=== PATIENT | female | born 1965 | race African-American/Black ===

== ENCOUNTER 2020-01-10 18:22 | Inpatient (IN) ==
[~2020-01-10 18:22] MED LIST: ENOXAPARIN 30 MG/0.3 ML SYRINGE SUBCUT SCH
[2020-01-10] MEDS ORDERED: NITROGLYCERIN DRIP 50 MG/250 ML BOTTLE IV ONE (18:42)
[2020-01-10] MEDS ORDERED: FUROSEMIDE 100 MG/10 ML VIAL IV STA (18:42)
[2020-01-10] MEDS ORDERED: FUROSEMIDE 100 MG/10 ML VIAL ONE (18:43)
[2020-01-10] MEDS: NITROGLYCERIN DRIP 50 MG/250 ML BOTTLE IV SCH (19:11)
[2020-01-10 19:39] LABS: Basophils # 0.1 10*3/uL (0.0-0.2); Basophils % 0.9 % (0.0-0.8); Eosinophils # 0.4 10*3/uL (0.0-0.87); Eosinophils % 7.3 % (0.00-10.9); Hematocrit 35.6 VOL% (35.7-47.0); Hemoglobin 10.4 GM/DL (12.0-16.0); Immature Granulocytes % 0.3 %; Immature Granulocytes Absolute 0.02 #; Lymphocytes # 0.9 10*3/uL (1.4-4.0); Lymphocytes % 14.5 % (21.3-54.2); Mean Corpuscular HGB Conc 29.2 GM/DL (32-36); Mean Platelet Volume 9.4 FL (9.6-12.0); Monocytes % 9.2 % (1.7-12.7); Neutrophils % 67.8 % (38.7-73.9); Platelet Count 295 T/CUMM (130-400); Red Blood Count 4.45 MC/CUMM (3.8-5.5); Red Cell Distribution Width 18.2 % (9.3-17.3); White Blood Count 5.9 T/CUMM (4-12)
[2020-01-10 19:50] LABS: INR 1.1; PT Patient Result 11.3 SECS (9.8-11.9)
[2020-01-10 20:03] LABS: Albumin 2.4 G/DL (3.4-5.0); Bilirubin,Total 0.5 MG/DL (0.2-1.0); Calcium 7.8 MG/DL (8.5-10.1); Osmolality,Calculated 293.3 MOS/KG (273-304); Total Protein 7.4 G/DL (6.4-8.3)
[2020-01-10] MEDS: DEXTROSE 5% 500 ML IV SCH (20:30)
[2020-01-10] MEDS: dilTIAZem Drip 125 MG/125 ML PREMIX IV SCH (20:33)
[2020-01-10] MEDS ORDERED: DEXTROSE 5% 1,000 ML IV SCH ×2 (21:00)
[2020-01-10] MEDS ORDERED: ONDANSETRON 4 MG/2 ML VIAL IV PRN (21:49)
[2020-01-10] MEDS ORDERED: ZALEPLON 5 MG CAPSULE PO PRN (21:49)
[2020-01-10] MEDS ORDERED: LABETALOL 20 MG/4 ML SYRINGE IV PRN (21:56)
[2020-01-10] MEDS ORDERED: DILTIAZEM INJ 100 MG in SODIUM CHLORIDE 0.9% 100 ML IV SCH (22:00)
[2020-01-10] MEDS ORDERED: NITROGLYCERIN DRIP 50 MG/250 ML BOTTLE IV SCH (22:00)
[2020-01-10] MEDS ORDERED: DEXTROSE 50% 25 GM/50 ML VIAL IV PRN (22:10)
[2020-01-10] MEDS ORDERED: GLUCAGON 1 MG VIAL IM PRN (22:10)
[2020-01-10] MEDS ORDERED: MAGNESIUM SULF RIDER 2 GM in PREMIX 1 EACH IV ONE (22:30)
[2020-01-11] MEDS: dilTIAZem Drip 125 MG/125 ML PREMIX IV SCH (00:07)
[2020-01-11] MEDS ORDERED: dilTIAZem Drip 125 MG/125 ML PREMIX IV SCH (00:30)
[2020-01-11] MEDS: FUROSEMIDE 40 MG/4 ML VIAL IV SCH ×3 (01:04→18:09)
[2020-01-11] MEDS: NITROGLYCERIN DRIP 50 MG/250 ML BOTTLE IV SCH ×2 (03:25→19:26)
[2020-01-11 04:51] LABS: Basophils % 0.4 % (0.0-0.8); Eosinophils # 0.3 10*3/uL (0.0-0.87); Eosinophils % 3.7 % (0.00-10.9); Hematocrit 31.6 VOL% (35.7-47.0); Hemoglobin 9.2 GM/DL (12.0-16.0); Immature Granulocytes % 0.3 %; Immature Granulocytes Absolute 0.02 #; Lymphocytes # 0.7 10*3/uL (1.4-4.0); Lymphocytes % 9.7 % (21.3-54.2); Mean Corpuscular HGB Conc 29.1 GM/DL (32-36); Mean Corpuscular Volume 81.2 FL (87-102); Mean Platelet Volume 9.3 FL (9.6-12.0); Neutrophils % 76.9 % (38.7-73.9); Platelet Count 270 T/CUMM (130-400); Red Blood Count 3.89 MC/CUMM (3.8-5.5); White Blood Count 6.7 T/CUMM (4-12)
[2020-01-11 05:32] LABS: Albumin 2.1 G/DL (3.4-5.0); Bilirubin,Total 0.6 MG/DL (0.2-1.0); Calcium 7.7 MG/DL (8.5-10.1); Osmolality,Calculated 292.4 MOS/KG (273-304); Risk Ratio 2.74; Thyroid Stimulating Hormone 8.18 uIU/ml (0.358-3.74); Total Protein 6.6 G/DL (6.4-8.3); VLDL CHOLESTEROL 13.8 MG/DL
[2020-01-11] MEDS: LEVOTHYROXINE 50 MCG TABLET PO SCH (06:12)
[2020-01-11] MEDS: DEXTROSE 5% 500 ML IV SCH (06:23)
[2020-01-11] MEDS ORDERED: ALBUTEROL/IPRATROPIUM 3 ML NEB RESP TX PRN (07:11)
[2020-01-11] MEDS: INSULIN LISPRO 100 UNIT/ML SUBCUT SCH ×4 (07:48→20:27)
[2020-01-11] MEDS: ENOXAPARIN 30 MG/0.3 ML SYRINGE SUBCUT SCH (08:50)
[2020-01-11] MEDS: amLODIPine 10 MG TABLET PO SCH (08:51)
[2020-01-11] MEDS: ALBUMIN 25% 25 GM in PREMIX 1 EACH IV SCH ×2 (08:51→17:05)
[2020-01-11] MEDS: FAMOTIDINE 20 MG TABLET PO SCH (08:51)
[2020-01-11] MEDS ORDERED: INFLUENZA VIRUS VACCINE 0.5 ML SYRINGE IM ONE (09:00)
[2020-01-11 12:25] LABS: Amorphous Crystals,Urine Few /HPF (Few); Bacteria,Urine Occasional /HPF (Few); Bilirubin,Urine Negative (Negative); Blood, Urine Large mg/dL (Negative); Glucose,Urine (UA) 50 mg/dL (Negative); Hyaline Casts,Urine 8 /LPF (0-3); Ketones,Urine Negative (Negative); Mucus,Urine Occasional /LPF (Occasional); Nitrite,Urine Negative (Negative); Protein,Urine 100 MG/DL; RBC,Urine 138 /HPF (0-4); Squamous Epithelial Cell,Urine Occasional /HPF (0-10); Urine Appearance Slightly Hazy (Clear); Urine Color Yellow (Yellow); Urine Specific Gravity 1.009 (1.001-1.035); Urine Urobilinogen < 2.0 EU/DL (0.2-1.0); WBC,Urine 15 /HPF (0-6)
[2020-01-11] MEDS: ATORVASTATIN 20 MG TABLET PO SCH (20:26)
[2020-01-12] MEDS: ALBUMIN 25% 25 GM in PREMIX 1 EACH IV SCH (00:37)
[2020-01-12] MEDS: FUROSEMIDE 40 MG/4 ML VIAL IV SCH ×3 (02:12→17:03)
[2020-01-12 04:34] LABS: Calcium 7.8 MG/DL (8.5-10.1); Osmolality,Calculated 290.5 MOS/KG (273-304)
[2020-01-12] MEDS: LEVOTHYROXINE 50 MCG TABLET PO SCH (06:10)
[2020-01-12] MEDS: INSULIN LISPRO 100 UNIT/ML SUBCUT SCH ×4 (08:16→21:35)
[2020-01-12] MEDS: FAMOTIDINE 20 MG TABLET PO SCH (09:17)
[2020-01-12] MEDS: amLODIPine 10 MG TABLET PO SCH (09:17)
[2020-01-12] MEDS: ENOXAPARIN 30 MG/0.3 ML SYRINGE SUBCUT SCH (09:17)
[2020-01-12] MEDS: ATORVASTATIN 20 MG TABLET PO SCH (20:35)
[2020-01-13] MEDS: LEVOTHYROXINE 50 MCG TABLET PO SCH (06:13)
[2020-01-13 06:37] LABS: Calcium 7.8 MG/DL (8.5-10.1); Osmolality,Calculated 291.5 MOS/KG (273-304)
[2020-01-13] MEDS: INSULIN LISPRO 100 UNIT/ML SUBCUT SCH ×4 (08:52→20:47)
[2020-01-13] MEDS: ENOXAPARIN 30 MG/0.3 ML SYRINGE SUBCUT SCH (08:53)
[2020-01-13] MEDS: FAMOTIDINE 20 MG TABLET PO SCH (08:53)
[2020-01-13] MEDS: amLODIPine 10 MG TABLET PO SCH (08:53)
[2020-01-13] MEDS: FUROSEMIDE 40 MG/4 ML VIAL IV SCH ×2 (08:54→16:31)
[2020-01-13] MEDS: ATORVASTATIN 20 MG TABLET PO SCH (20:46)
[2020-01-14 04:23] LABS: Calcium 7.9 MG/DL (8.5-10.1)
[2020-01-14 04:24] LABS: Uric Acid 9.2 MG/DL (2.6-6.0)
[2020-01-14 05:06] LABS: ABG Base Excess -7.7 MMOL/L (-2.5-2.5); ABG HCO3 18.1 MMOL/L (20-26); ABG Oxygen Saturation 99.1 % (95-100); ABG PCO2 47.3 MM HG (35-48); ABG PH 7.228 (7.35-7.45); ABG TCO2 18.5 MMOL/L (23-27)
[2020-01-14 05:24] LABS: Basophils # 0.1 10*3/uL (0.0-0.2); Basophils % 0.6 % (0.0-0.8); Eosinophils # 0.4 10*3/uL (0.0-0.87); Eosinophils % 4.8 % (0.00-10.9); Hematocrit 33.1 VOL% (35.7-47.0); Immature Granulocytes % 0.9 %; Immature Granulocytes Absolute 0.07 #; Lymphocytes # 0.9 10*3/uL (1.4-4.0); Lymphocytes % 11.1 % (21.3-54.2); Mean Corpuscular HGB Conc 28.4 GM/DL (32-36); Mean Corpuscular Volume 81.7 FL (87-102); Monocytes % 10.7 % (1.7-12.7); Neutrophils % 71.9 % (38.7-73.9); Platelet Count 273 T/CUMM (130-400); Red Blood Count 4.05 MC/CUMM (3.8-5.5); Red Cell Distribution Width 18.3 % (9.3-17.3); White Blood Count 8.1 T/CUMM (4-12)
[2020-01-14 05:28] LABS: Hemoglobin 9.4 GM/DL (12.0-16.0)
[2020-01-14] MEDS: LEVOTHYROXINE 50 MCG TABLET PO SCH (05:42)
[2020-01-14 05:53] LABS: Hypochromasia Slight; Microcytosis 1+; Platelet Estimate Normal
[2020-01-14] MEDS: FAMOTIDINE 20 MG TABLET PO SCH (09:44)
[2020-01-14] MEDS: INSULIN LISPRO 100 UNIT/ML SUBCUT SCH ×4 (09:44→21:07)
[2020-01-14] MEDS: FUROSEMIDE 40 MG/4 ML VIAL IV SCH ×2 (09:44→17:01)
[2020-01-14] MEDS: amLODIPine 10 MG TABLET PO SCH (09:44)
[2020-01-14] MEDS: ENOXAPARIN 30 MG/0.3 ML SYRINGE SUBCUT SCH (09:44)
[2020-01-14] MEDS: ISOSORBIDE MONONITRATE 30 MG TABLET PO SCH (12:15)
[2020-01-14] MEDS: carvediloL 6.25 MG TABLET PO SCH (21:02)
[2020-01-14] MEDS: ATORVASTATIN 20 MG TABLET PO SCH (21:02)
[2020-01-14] MEDS: SODIUM BICARBONATE 650 MG TABLET PO SCH (21:02)
[2020-01-15 03:23] LABS: Bacteria,Urine Occasional /HPF (Few); Bilirubin,Urine Negative (Negative); Blood, Urine Moderate mg/dL (Negative); Glucose,Urine (UA) 50 mg/dL (Negative); Hyaline Casts,Urine 2 /LPF (0-3); Ketones,Urine Negative (Negative); Mucus,Urine Occasional /LPF (Occasional); Nitrite,Urine Negative (Negative); Protein,Urine 100 MG/DL; RBC,Urine 131 /HPF (0-4); Squamous Epithelial Cell,Urine Occasional /HPF (0-10); Urine Appearance CLOUDY (Clear); Urine Color Yellow (Yellow); Urine Specific Gravity 1.012 (1.001-1.035); Urine Urobilinogen < 2.0 EU/DL (0.2-1.0); WBC,Urine 11 /HPF (0-6)
[2020-01-15 05:41] LABS: Basophils % 0.6 % (0.0-0.8); Eosinophils # 0.4 10*3/uL (0.0-0.87); Eosinophils % 6.2 % (0.00-10.9); Hematocrit 31.6 VOL% (35.7-47.0); Immature Granulocytes % 0.3 %; Immature Granulocytes Absolute 0.02 #; Lymphocytes # 0.7 10*3/uL (1.4-4.0); Lymphocytes % 11.1 % (21.3-54.2); Mean Corpuscular HGB Conc 28.5 GM/DL (32-36); Mean Corpuscular Volume 81.7 FL (87-102); Mean Platelet Volume 9.5 FL (9.6-12.0); Monocytes % 11.2 % (1.7-12.7); Neutrophils % 70.6 % (38.7-73.9); Platelet Count 248 T/CUMM (130-400); Red Blood Count 3.87 MC/CUMM (3.8-5.5); White Blood Count 6.6 T/CUMM (4-12)
[2020-01-15 06:05] LABS: Calcium 7.6 MG/DL (8.5-10.1); Osmolality,Calculated 293.7 MOS/KG (273-304)
[2020-01-15 06:15] LABS: Hypochromasia 2+; Platelet Estimate Normal
[2020-01-15] MEDS: LEVOTHYROXINE 50 MCG TABLET PO SCH (06:15)
[2020-01-15] MEDS: SEVELAMER CARBONATE 800 MG TABLET PO SCH ×3 (08:44→18:02)
[2020-01-15] MEDS: FAMOTIDINE 20 MG TABLET PO SCH (08:51)
[2020-01-15] MEDS: SODIUM BICARBONATE 650 MG TABLET PO SCH ×3 (08:51→21:49)
[2020-01-15] MEDS: ISOSORBIDE MONONITRATE 30 MG TABLET PO SCH (08:51)
[2020-01-15] MEDS: carvediloL 6.25 MG TABLET PO SCH (08:52)
[2020-01-15] MEDS: INSULIN LISPRO 100 UNIT/ML SUBCUT SCH ×4 (08:53→21:49)
[2020-01-15] MEDS: ENOXAPARIN 30 MG/0.3 ML SYRINGE SUBCUT SCH (08:53)
[2020-01-15] MEDS: FUROSEMIDE 40 MG/4 ML VIAL IV SCH ×3 (08:53→23:18)
[2020-01-15] MEDS: ERGOCALCIFEROL 50,000 UNIT CAPSULE PO SCH (08:55)
[2020-01-15] MEDS ORDERED: carvediloL 6.25 MG TABLET PO ONE (11:00)
[2020-01-15] MEDS: metOLazone 5 MG TABLET PO SCH (12:13)
[2020-01-15] MEDS: carvediloL 12.5 MG TABLET PO SCH (18:02)
[2020-01-15] MEDS ORDERED: THIAMINE 100 MG TABLET PO SCH (21:00)
[2020-01-15] MEDS: ATORVASTATIN 20 MG TABLET PO SCH (21:49)
[2020-01-16 06:14] LABS: Calcium 7.6 MG/DL (8.5-10.1); Osmolality,Calculated 292.1 MOS/KG (273-304)
[2020-01-16 06:24] LABS: Basophils % 0.5 % (0.0-0.8); Eosinophils # 0.4 10*3/uL (0.0-0.87); Eosinophils % 6.8 % (0.00-10.9); Hematocrit 31.4 VOL% (35.7-47.0); Immature Granulocytes % 0.6 %; Immature Granulocytes Absolute 0.04 #; Lymphocytes # 0.7 10*3/uL (1.4-4.0); Lymphocytes % 11.6 % (21.3-54.2); Mean Corpuscular Volume 81.1 FL (87-102); Mean Platelet Volume 9.7 FL (9.6-12.0); Monocytes % 10.5 % (1.7-12.7); NRBC # 0.02 10*3/uL; Platelet Count 256 T/CUMM (130-400); Red Blood Count 3.87 MC/CUMM (3.8-5.5); Red Cell Distribution Width 18.2 % (9.3-17.3); White Blood Count 6.2 T/CUMM (4-12)
[2020-01-16 06:26] LABS: Hemoglobin 9.1 GM/DL (12.0-16.0)
[2020-01-16] MEDS: LEVOTHYROXINE 50 MCG TABLET PO SCH (06:27)
[2020-01-16] MEDS: FUROSEMIDE 40 MG/4 ML VIAL IV SCH ×3 (06:27→22:05)
[2020-01-16] MEDS: INSULIN LISPRO 100 UNIT/ML SUBCUT SCH ×4 (07:46→22:06)
[2020-01-16] MEDS: FAMOTIDINE 20 MG TABLET PO SCH (08:19)
[2020-01-16] MEDS: carvediloL 12.5 MG TABLET PO SCH ×2 (08:19→16:30)
[2020-01-16] MEDS: THIAMINE 100 MG TABLET PO SCH (08:19)
[2020-01-16] MEDS: ISOSORBIDE MONONITRATE 30 MG TABLET PO SCH (08:19)
[2020-01-16] MEDS: SODIUM BICARBONATE 650 MG TABLET PO SCH ×3 (08:19→22:06)
[2020-01-16] MEDS: metOLazone 5 MG TABLET PO SCH (08:19)
[2020-01-16] MEDS: SEVELAMER CARBONATE 800 MG TABLET PO SCH ×3 (08:19→16:30)
[2020-01-16] MEDS: ENOXAPARIN 30 MG/0.3 ML SYRINGE SUBCUT SCH (08:22)
[2020-01-16] MEDS: ATORVASTATIN 20 MG TABLET PO SCH (22:06)
[2020-01-17] MEDS: diphenhydrAMINE CAP 25 MG CAPSULE PO PRN (02:01)
[2020-01-17] MEDS: LEVOTHYROXINE 50 MCG TABLET PO SCH (05:44)
[2020-01-17] MEDS ORDERED: LIDOCAINE 1%/EPI INJ 20 ML VIAL ONE (06:25)
[2020-01-17] MEDS ORDERED: HEPARIN 5,000 UNIT/1 ML VIAL ONE (06:25)
[2020-01-17] MEDS ORDERED: BUPIVACAINE MPF 0.25% 30 ML VIAL ONE (06:25)
[2020-01-17] MEDS ORDERED: CLINDAMYCIN INJ 900 MG in PREMIX 1 EACH IV ONE (07:00)
[2020-01-17] MEDS ORDERED: SODIUM CHLORIDE 0.9% 100 ML IV ONE (08:05)
[2020-01-17] MEDS ORDERED: propofoL 200 MG/20 ML VIAL IV ONE (08:05)
[2020-01-17] MEDS ORDERED: ETOMIDATE 40 MG/20 ML VIAL IV ONE (08:05)
[2020-01-17] MEDS ORDERED: HEPARIN 10,000 UNIT/10 ML VIAL IV PRN (09:45)
[2020-01-17] MEDS: FUROSEMIDE 40 MG/4 ML VIAL IV SCH ×3 (10:01→22:21)
[2020-01-17] MEDS: INSULIN LISPRO 100 UNIT/ML SUBCUT SCH ×4 (10:02→20:35)
[2020-01-17] MEDS: carvediloL 12.5 MG TABLET PO SCH ×2 (10:02→17:07)
[2020-01-17] MEDS: SEVELAMER CARBONATE 800 MG TABLET PO SCH ×3 (10:03→17:07)
[2020-01-17] MEDS: FAMOTIDINE 20 MG TABLET PO SCH (10:03)
[2020-01-17] MEDS: SODIUM BICARBONATE 650 MG TABLET PO SCH ×3 (10:03→20:35)
[2020-01-17] MEDS: ISOSORBIDE MONONITRATE 30 MG TABLET PO SCH (10:03)
[2020-01-17 10:40] LABS: Albumin 2.9 G/DL (3.4-5.0); Bilirubin,Direct 0.28 MG/DL (0.0-0.20); Bilirubin,Indirect 0.2 MG/DL (0.0-1.0); Bilirubin,Total 0.5 MG/DL (0.2-1.0); Total Protein 7.8 G/DL (6.4-8.3)
[2020-01-17 14:48] LABS: Hepatitis B Surface Ag Quant < 0.10 Index; Hepatitis B Surface Ag Result Negative (Negative); Hepatitis C Virus Ab Quant 0.02 Index; Hepatitis C Virus Ab Result Negative (Negative)
[2020-01-17] MEDS: THIAMINE 100 MG TABLET PO SCH (14:55)
[2020-01-17] MEDS: metOLazone 5 MG TABLET PO SCH (14:56)
[2020-01-17] MEDS: ATORVASTATIN 20 MG TABLET PO SCH (20:35)
[2020-01-18 05:43] LABS: Basophils % 0.7 % (0.0-0.8); Eosinophils # 0.3 10*3/uL (0.0-0.87); Hematocrit 30.7 VOL% (35.7-47.0); Hemoglobin 8.9 GM/DL (12.0-16.0); Immature Granulocytes % 0.7 %; Immature Granulocytes Absolute 0.04 #; Lymphocytes # 0.7 10*3/uL (1.4-4.0); Lymphocytes % 10.7 % (21.3-54.2); Mean Corpuscular Volume 80.6 FL (87-102); Mean Platelet Volume 9.8 FL (9.6-12.0); Monocytes % 11.4 % (1.7-12.7); NRBC # 0.02 10*3/uL; Neutrophils % 71.5 % (38.7-73.9); Platelet Count 220 T/CUMM (130-400); Red Blood Count 3.81 MC/CUMM (3.8-5.5); Red Cell Distribution Width 18.1 % (9.3-17.3); White Blood Count 6.1 T/CUMM (4-12)
[2020-01-18 06:00] LABS: Calcium 7.5 MG/DL (8.5-10.1); Osmolality,Calculated 296.8 MOS/KG (273-304)
[2020-01-18] MEDS: LEVOTHYROXINE 50 MCG TABLET PO SCH (06:16)
[2020-01-18] MEDS: FUROSEMIDE 40 MG/4 ML VIAL IV SCH ×2 (06:17→17:36)
[2020-01-18] MEDS: metOLazone 5 MG TABLET PO SCH (08:19)
[2020-01-18] MEDS: SODIUM BICARBONATE 650 MG TABLET PO SCH ×3 (08:19→20:24)
[2020-01-18] MEDS: ISOSORBIDE MONONITRATE 30 MG TABLET PO SCH (08:19)
[2020-01-18] MEDS: SEVELAMER CARBONATE 800 MG TABLET PO SCH ×3 (08:19→17:37)
[2020-01-18] MEDS: THIAMINE 100 MG TABLET PO SCH (08:19)
[2020-01-18] MEDS: carvediloL 12.5 MG TABLET PO SCH ×2 (08:20→17:37)
[2020-01-18] MEDS: INSULIN LISPRO 100 UNIT/ML SUBCUT SCH ×4 (08:20→20:26)
[2020-01-18] MEDS: FAMOTIDINE 20 MG TABLET PO SCH (08:20)
[2020-01-18] MEDS: ATORVASTATIN 20 MG TABLET PO SCH (20:24)
[2020-01-19] MEDS: FUROSEMIDE 40 MG/4 ML VIAL IV SCH ×3 (00:29→16:26)
[2020-01-19] MEDS: LEVOTHYROXINE 50 MCG TABLET PO SCH (06:14)
[2020-01-19] MEDS: INSULIN LISPRO 100 UNIT/ML SUBCUT SCH ×4 (08:08→20:37)
[2020-01-19] MEDS: SEVELAMER CARBONATE 800 MG TABLET PO SCH ×3 (08:31→16:26)
[2020-01-19] MEDS: THIAMINE 100 MG TABLET PO SCH (08:31)
[2020-01-19] MEDS: FAMOTIDINE 20 MG TABLET PO SCH (08:31)
[2020-01-19] MEDS: metOLazone 5 MG TABLET PO SCH (08:32)
[2020-01-19] MEDS: carvediloL 12.5 MG TABLET PO SCH ×2 (08:32→16:26)
[2020-01-19] MEDS: ISOSORBIDE MONONITRATE 30 MG TABLET PO SCH (08:32)
[2020-01-19] MEDS: SODIUM BICARBONATE 650 MG TABLET PO SCH ×3 (08:32→20:36)
[2020-01-19] MEDS: HEPARIN 5,000 UNIT/1 ML VIAL SUBCUT SCH (14:54)
[2020-01-19] MEDS: ATORVASTATIN 20 MG TABLET PO SCH (20:37)
[2020-01-20] MEDS: FUROSEMIDE 40 MG/4 ML VIAL IV SCH ×3 (01:02→17:13)
[2020-01-20 05:47] LABS: Basophils # 0.1 10*3/uL (0.0-0.2); Basophils % 0.7 % (0.0-0.8); Eosinophils # 0.4 10*3/uL (0.0-0.87); Eosinophils % 6.2 % (0.00-10.9); Hematocrit 29.1 VOL% (35.7-47.0); Hemoglobin 8.5 GM/DL (12.0-16.0); Immature Granulocytes % 0.7 %; Immature Granulocytes Absolute 0.05 #; Lymphocytes # 0.8 10*3/uL (1.4-4.0); Lymphocytes % 11.8 % (21.3-54.2); Mean Corpuscular HGB Conc 29.2 GM/DL (32-36); Mean Corpuscular Volume 80.8 FL (87-102); Mean Platelet Volume 9.9 FL (9.6-12.0); Monocytes % 12.3 % (1.7-12.7); Neutrophils % 68.3 % (38.7-73.9); Platelet Count 185 T/CUMM (130-400); Red Cell Distribution Width 18.1 % (9.3-17.3); White Blood Count 6.9 T/CUMM (4-12)
[2020-01-20] MEDS: LEVOTHYROXINE 50 MCG TABLET PO SCH (06:42)
[2020-01-20] MEDS: INSULIN LISPRO 100 UNIT/ML SUBCUT SCH ×4 (07:25→21:42)
[2020-01-20] MEDS: HEPARIN 5,000 UNIT/1 ML VIAL SUBCUT SCH ×2 (08:51→21:32)
[2020-01-20] MEDS: THIAMINE 100 MG TABLET PO SCH (08:51)
[2020-01-20] MEDS: metOLazone 5 MG TABLET PO SCH (08:51)
[2020-01-20] MEDS: SEVELAMER CARBONATE 800 MG TABLET PO SCH ×3 (08:51→17:13)
[2020-01-20] MEDS: ISOSORBIDE MONONITRATE 30 MG TABLET PO SCH (08:51)
[2020-01-20] MEDS: SODIUM BICARBONATE 650 MG TABLET PO SCH ×3 (08:51→21:32)
[2020-01-20] MEDS: FAMOTIDINE 20 MG TABLET PO SCH (08:51)
[2020-01-20] MEDS: carvediloL 12.5 MG TABLET PO SCH ×2 (08:52→17:13)
[2020-01-20] MEDS: ATORVASTATIN 20 MG TABLET PO SCH (21:32)
[2020-01-21] MEDS: FUROSEMIDE 40 MG/4 ML VIAL IV SCH ×3 (06:05→16:08)
[2020-01-21] MEDS: LEVOTHYROXINE 50 MCG TABLET PO SCH (06:36)
[2020-01-21 06:57] LABS: Basophils % 0.6 % (0.0-0.8); Eosinophils # 0.4 10*3/uL (0.0-0.87); Eosinophils % 6.4 % (0.00-10.9); Hematocrit 29.2 VOL% (35.7-47.0); Hemoglobin 8.6 GM/DL (12.0-16.0); Immature Granulocytes % 0.8 %; Immature Granulocytes Absolute 0.05 #; Lymphocytes # 0.8 10*3/uL (1.4-4.0); Lymphocytes % 11.9 % (21.3-54.2); Mean Corpuscular HGB Conc 29.5 GM/DL (32-36); Mean Corpuscular Volume 81.3 FL (87-102); Mean Platelet Volume 9.9 FL (9.6-12.0); Monocytes % 11.9 % (1.7-12.7); NRBC # 0.02 10*3/uL; Neutrophils % 68.4 % (38.7-73.9); Platelet Count 196 T/CUMM (130-400); Red Blood Count 3.59 MC/CUMM (3.8-5.5); Red Cell Distribution Width 17.5 % (9.3-17.3); White Blood Count 6.4 T/CUMM (4-12)
[2020-01-21 07:13] LABS: Calcium 7.7 MG/DL (8.5-10.1); Osmolality,Calculated 276.2 MOS/KG (273-304)
[2020-01-21] MEDS: SODIUM BICARBONATE 650 MG TABLET PO SCH ×3 (08:37→21:00)
[2020-01-21] MEDS: THIAMINE 100 MG TABLET PO SCH (08:37)
[2020-01-21] MEDS: SEVELAMER CARBONATE 800 MG TABLET PO SCH ×3 (08:37→16:07)
[2020-01-21] MEDS: carvediloL 12.5 MG TABLET PO SCH ×2 (08:37→16:08)
[2020-01-21] MEDS: FAMOTIDINE 20 MG TABLET PO SCH (08:37)
[2020-01-21] MEDS: metOLazone 5 MG TABLET PO SCH (08:38)
[2020-01-21] MEDS: ISOSORBIDE MONONITRATE 30 MG TABLET PO SCH (08:38)
[2020-01-21] MEDS: INSULIN LISPRO 100 UNIT/ML SUBCUT SCH ×4 (08:39→21:02)
[2020-01-21] MEDS: HEPARIN 5,000 UNIT/1 ML VIAL SUBCUT SCH ×2 (08:44→21:00)
[2020-01-21] MEDS: ATORVASTATIN 20 MG TABLET PO SCH (21:01)
[2020-01-22] MEDS: FUROSEMIDE 40 MG/4 ML VIAL IV SCH ×3 (00:26→16:44)
[2020-01-22] MEDS: diphenhydrAMINE CAP 25 MG CAPSULE PO PRN (01:33)
[2020-01-22 05:53] LABS: Basophils % 0.6 % (0.0-0.8); Eosinophils # 0.4 10*3/uL (0.0-0.87); Eosinophils % 6.4 % (0.00-10.9); Hematocrit 28.1 VOL% (35.7-47.0); Immature Granulocytes % 0.7 %; Immature Granulocytes Absolute 0.05 #; Lymphocytes # 0.9 10*3/uL (1.4-4.0); Lymphocytes % 13.2 % (21.3-54.2); Mean Corpuscular HGB Conc 28.5 GM/DL (32-36); Mean Corpuscular Volume 81.7 FL (87-102); Monocytes % 12.4 % (1.7-12.7); Neutrophils % 66.7 % (38.7-73.9); Platelet Count 195 T/CUMM (130-400); Red Blood Count 3.44 MC/CUMM (3.8-5.5); Red Cell Distribution Width 17.5 % (9.3-17.3); White Blood Count 6.9 T/CUMM (4-12)
[2020-01-22] MEDS: LEVOTHYROXINE 50 MCG TABLET PO SCH (06:13)
[2020-01-22 06:14] LABS: Hypochromasia 1+; Microcytosis 1+; Platelet Estimate Adequate
[2020-01-22 06:22] LABS: Calcium 7.6 MG/DL (8.5-10.1); Osmolality,Calculated 278.2 MOS/KG (273-304)
[2020-01-22] MEDS: SEVELAMER CARBONATE 800 MG TABLET PO SCH ×3 (09:07→16:43)
[2020-01-22] MEDS: FAMOTIDINE 20 MG TABLET PO SCH (09:07)
[2020-01-22] MEDS: HEPARIN 5,000 UNIT/1 ML VIAL SUBCUT SCH ×2 (09:07→22:04)
[2020-01-22] MEDS: ISOSORBIDE MONONITRATE 30 MG TABLET PO SCH (09:07)
[2020-01-22] MEDS: metOLazone 5 MG TABLET PO SCH (09:08)
[2020-01-22] MEDS: THIAMINE 100 MG TABLET PO SCH (09:08)
[2020-01-22] MEDS: carvediloL 12.5 MG TABLET PO SCH ×2 (09:08→16:44)
[2020-01-22] MEDS: INSULIN LISPRO 100 UNIT/ML SUBCUT SCH ×4 (09:09→22:02)
[2020-01-22] MEDS: SODIUM BICARBONATE 650 MG TABLET PO SCH ×3 (09:13→22:03)
[2020-01-22] MEDS: ERGOCALCIFEROL 50,000 UNIT CAPSULE PO SCH (09:13)
[2020-01-22] MEDS ORDERED: EPOETIN ALFA 2,000 UNIT/1 ML VIAL IV SCH (11:30)
[2020-01-22] MEDS: ATORVASTATIN 20 MG TABLET PO SCH (22:03)
[2020-01-23] MEDS: FUROSEMIDE 40 MG/4 ML VIAL IV SCH ×3 (01:56→17:02)
[2020-01-23 05:55] LABS: Basophils % 0.4 % (0.0-0.8); Eosinophils # 0.6 10*3/uL (0.0-0.87); Eosinophils % 7.8 % (0.00-10.9); Hematocrit 28.6 VOL% (35.7-47.0); Hemoglobin 8.4 GM/DL (12.0-16.0); Immature Granulocytes % 1.3 %; Immature Granulocytes Absolute 0.09 #; Lymphocytes # 0.8 10*3/uL (1.4-4.0); Lymphocytes % 11.7 % (21.3-54.2); Mean Corpuscular HGB Conc 29.4 GM/DL (32-36); Mean Corpuscular Volume 80.6 FL (87-102); Mean Platelet Volume 9.6 FL (9.6-12.0); Monocytes % 12.4 % (1.7-12.7); Neutrophils % 66.4 % (38.7-73.9); Platelet Count 175 T/CUMM (130-400); Red Blood Count 3.55 MC/CUMM (3.8-5.5); Red Cell Distribution Width 17.5 % (9.3-17.3)
[2020-01-23 05:59] LABS: Hypochromasia 2+
[2020-01-23 06:00] LABS: Microcytosis 1+; Polychromasia Slight
[2020-01-23 06:01] LABS: Platelet Estimate Adequate
[2020-01-23 06:08] LABS: Calcium 7.6 MG/DL (8.5-10.1); Osmolality,Calculated 278.4 MOS/KG (273-304)
[2020-01-23] MEDS: LEVOTHYROXINE 50 MCG TABLET PO SCH (06:57)
[2020-01-23] MEDS: INSULIN LISPRO 100 UNIT/ML SUBCUT SCH ×4 (08:02→22:06)
[2020-01-23] MEDS: carvediloL 12.5 MG TABLET PO SCH ×2 (08:17→17:02)
[2020-01-23] MEDS: SODIUM BICARBONATE 650 MG TABLET PO SCH ×3 (08:17→22:05)
[2020-01-23] MEDS: metOLazone 5 MG TABLET PO SCH (08:17)
[2020-01-23] MEDS: ISOSORBIDE MONONITRATE 30 MG TABLET PO SCH (08:17)
[2020-01-23] MEDS: SEVELAMER CARBONATE 800 MG TABLET PO SCH ×3 (08:17→17:02)
[2020-01-23] MEDS: THIAMINE 100 MG TABLET PO SCH (08:17)
[2020-01-23] MEDS: HEPARIN 5,000 UNIT/1 ML VIAL SUBCUT SCH ×2 (08:18→22:07)
[2020-01-23] MEDS: FAMOTIDINE 20 MG TABLET PO SCH (08:20)
[2020-01-23] MEDS: ATORVASTATIN 20 MG TABLET PO SCH (22:06)
[2020-01-24] MEDS: FUROSEMIDE 40 MG/4 ML VIAL IV SCH ×3 (01:03→16:44)
[2020-01-24] MEDS: LEVOTHYROXINE 50 MCG TABLET PO SCH (06:07)
[2020-01-24] MEDS: INSULIN LISPRO 100 UNIT/ML SUBCUT SCH ×4 (07:38→20:34)
[2020-01-24] MEDS: THIAMINE 100 MG TABLET PO SCH (08:29)
[2020-01-24] MEDS: metOLazone 5 MG TABLET PO SCH (08:29)
[2020-01-24] MEDS: FAMOTIDINE 20 MG TABLET PO SCH (08:29)
[2020-01-24] MEDS: SEVELAMER CARBONATE 800 MG TABLET PO SCH ×3 (08:29→16:44)
[2020-01-24] MEDS: carvediloL 12.5 MG TABLET PO SCH ×2 (08:29→16:45)
[2020-01-24] MEDS: ISOSORBIDE MONONITRATE 30 MG TABLET PO SCH (08:29)
[2020-01-24] MEDS: SODIUM BICARBONATE 650 MG TABLET PO SCH ×3 (08:30→20:36)
[2020-01-24] MEDS: HEPARIN 5,000 UNIT/1 ML VIAL SUBCUT SCH ×2 (08:30→20:35)
[2020-01-24] MEDS: ATORVASTATIN 20 MG TABLET PO SCH (20:36)
[2020-01-24] MEDS: diphenhydrAMINE CAP 25 MG CAPSULE PO PRN (22:35)
[2020-01-25] MEDS: FUROSEMIDE 40 MG/4 ML VIAL IV SCH ×3 (01:15→16:36)
[2020-01-25 04:07] LABS: Basophils % 0.5 % (0.0-0.8); Eosinophils # 0.6 10*3/uL (0.0-0.87); Eosinophils % 7.7 % (0.00-10.9); Hematocrit 28.7 VOL% (35.7-47.0); Hemoglobin 8.3 GM/DL (12.0-16.0); Immature Granulocytes % 0.8 %; Immature Granulocytes Absolute 0.06 #; Lymphocytes # 1.1 10*3/uL (1.4-4.0); Mean Corpuscular HGB Conc 28.9 GM/DL (32-36); Mean Corpuscular Volume 80.4 FL (87-102); Mean Platelet Volume 9.5 FL (9.6-12.0); Platelet Count 173 T/CUMM (130-400); Red Blood Count 3.57 MC/CUMM (3.8-5.5); Red Cell Distribution Width 17.5 % (9.3-17.3); White Blood Count 7.7 T/CUMM (4-12)
[2020-01-25 04:25] LABS: Calcium 7.9 MG/DL (8.5-10.1); Osmolality,Calculated 275.5 MOS/KG (273-304)
[2020-01-25 04:41] LABS: Hypochromasia 1+; Microcytosis 1+; Ovalocytes Slight; Platelet Estimate Adequate
[2020-01-25] MEDS: LEVOTHYROXINE 50 MCG TABLET PO SCH (05:40)
[2020-01-25] MEDS: INSULIN LISPRO 100 UNIT/ML SUBCUT SCH ×4 (07:17→20:53)
[2020-01-25] MEDS: metOLazone 5 MG TABLET PO SCH (08:40)
[2020-01-25] MEDS: FAMOTIDINE 20 MG TABLET PO SCH (08:40)
[2020-01-25] MEDS: SEVELAMER CARBONATE 800 MG TABLET PO SCH ×3 (08:40→16:36)
[2020-01-25] MEDS: ISOSORBIDE MONONITRATE 30 MG TABLET PO SCH (08:40)
[2020-01-25] MEDS: carvediloL 12.5 MG TABLET PO SCH ×2 (08:40→16:36)
[2020-01-25] MEDS: THIAMINE 100 MG TABLET PO SCH (08:40)
[2020-01-25] MEDS: SODIUM BICARBONATE 650 MG TABLET PO SCH ×3 (08:40→20:53)
[2020-01-25] MEDS: HEPARIN 5,000 UNIT/1 ML VIAL SUBCUT SCH ×2 (08:41→20:53)
[2020-01-25] MEDS: ATORVASTATIN 20 MG TABLET PO SCH (20:53)
[2020-01-26] MEDS: FUROSEMIDE 40 MG/4 ML VIAL IV SCH ×3 (01:32→17:33)
[2020-01-26] MEDS: LEVOTHYROXINE 50 MCG TABLET PO SCH (05:39)
[2020-01-26] MEDS: THIAMINE 100 MG TABLET PO SCH (08:01)
[2020-01-26] MEDS: SEVELAMER CARBONATE 800 MG TABLET PO SCH ×3 (08:01→17:33)
[2020-01-26] MEDS: SODIUM BICARBONATE 650 MG TABLET PO SCH ×3 (08:01→20:22)
[2020-01-26] MEDS: metOLazone 5 MG TABLET PO SCH (08:01)
[2020-01-26] MEDS: carvediloL 12.5 MG TABLET PO SCH ×2 (08:01→17:33)
[2020-01-26] MEDS: FAMOTIDINE 20 MG TABLET PO SCH (08:01)
[2020-01-26] MEDS: HEPARIN 5,000 UNIT/1 ML VIAL SUBCUT SCH ×2 (08:02→20:23)
[2020-01-26] MEDS: INSULIN LISPRO 100 UNIT/ML SUBCUT SCH ×4 (08:08→20:23)
[2020-01-26] MEDS: ISOSORBIDE MONONITRATE 30 MG TABLET PO SCH (08:08)
[2020-01-26] MEDS: ATORVASTATIN 20 MG TABLET PO SCH (20:23)
[2020-01-27] MEDS: FUROSEMIDE 40 MG/4 ML VIAL IV SCH ×3 (01:45→17:15)
[2020-01-27 03:55] LABS: Basophils % 0.5 % (0.0-0.8); Eosinophils # 0.5 10*3/uL (0.0-0.87); Eosinophils % 6.1 % (0.00-10.9); Hematocrit 28.7 VOL% (35.7-47.0); Hemoglobin 8.4 GM/DL (12.0-16.0); Immature Granulocytes % 1.1 %; Immature Granulocytes Absolute 0.09 #; Lymphocytes # 0.9 10*3/uL (1.4-4.0); Lymphocytes % 10.3 % (21.3-54.2); Mean Corpuscular HGB Conc 29.3 GM/DL (32-36); Mean Corpuscular Volume 80.4 FL (87-102); Monocytes % 11.5 % (1.7-12.7); NRBC # 0.04 10*3/uL; Neutrophils % 70.5 % (38.7-73.9); Platelet Count 176 T/CUMM (130-400); Red Blood Count 3.57 MC/CUMM (3.8-5.5); Red Cell Distribution Width 17.4 % (9.3-17.3); White Blood Count 8.4 T/CUMM (4-12)
[2020-01-27 04:14] LABS: Calcium 8.2 MG/DL (8.5-10.1); Osmolality,Calculated 269.4 MOS/KG (273-304)
[2020-01-27] MEDS: LEVOTHYROXINE 50 MCG TABLET PO SCH (06:45)
[2020-01-27] MEDS: carvediloL 12.5 MG TABLET PO SCH ×2 (08:35→17:15)
[2020-01-27] MEDS: SEVELAMER CARBONATE 800 MG TABLET PO SCH ×3 (08:35→17:15)
[2020-01-27] MEDS: SODIUM BICARBONATE 650 MG TABLET PO SCH ×3 (08:35→21:56)
[2020-01-27] MEDS: THIAMINE 100 MG TABLET PO SCH (08:36)
[2020-01-27] MEDS: metOLazone 5 MG TABLET PO SCH (08:36)
[2020-01-27] MEDS: ISOSORBIDE MONONITRATE 30 MG TABLET PO SCH (08:36)
[2020-01-27] MEDS: FAMOTIDINE 20 MG TABLET PO SCH (08:36)
[2020-01-27] MEDS: HEPARIN 5,000 UNIT/1 ML VIAL SUBCUT SCH ×2 (08:36→21:54)
[2020-01-27] MEDS: INSULIN LISPRO 100 UNIT/ML SUBCUT SCH ×4 (08:37→21:55)
[2020-01-27] MEDS: ATORVASTATIN 20 MG TABLET PO SCH (21:56)
[2020-01-28] MEDS: FUROSEMIDE 40 MG/4 ML VIAL IV SCH ×3 (02:50→16:53)
[2020-01-28] MEDS: LEVOTHYROXINE 50 MCG TABLET PO SCH (06:43)
[2020-01-28] MEDS: metOLazone 5 MG TABLET PO SCH (08:51)
[2020-01-28] MEDS: carvediloL 12.5 MG TABLET PO SCH ×2 (08:51→16:53)
[2020-01-28] MEDS: ISOSORBIDE MONONITRATE 30 MG TABLET PO SCH (08:51)
[2020-01-28] MEDS: SEVELAMER CARBONATE 800 MG TABLET PO SCH ×3 (08:51→16:52)
[2020-01-28] MEDS: FAMOTIDINE 20 MG TABLET PO SCH (08:51)
[2020-01-28] MEDS: THIAMINE 100 MG TABLET PO SCH (08:52)
[2020-01-28] MEDS: HEPARIN 5,000 UNIT/1 ML VIAL SUBCUT SCH ×2 (08:52→22:09)
[2020-01-28] MEDS: SODIUM BICARBONATE 650 MG TABLET PO SCH ×3 (08:52→22:08)
[2020-01-28] MEDS: INSULIN LISPRO 100 UNIT/ML SUBCUT SCH ×4 (09:55→22:09)
[2020-01-28] MEDS: ATORVASTATIN 20 MG TABLET PO SCH (22:08)
[2020-01-29] MEDS: FUROSEMIDE 40 MG/4 ML VIAL IV SCH ×3 (00:38→16:30)
[2020-01-29 05:44] LABS: Basophils # 0.1 10*3/uL (0.0-0.2); Basophils % 0.6 % (0.0-0.8); Eosinophils # 0.5 10*3/uL (0.0-0.87); Eosinophils % 6.1 % (0.00-10.9); Hematocrit 28.3 VOL% (35.7-47.0); Hemoglobin 8.2 GM/DL (12.0-16.0); Immature Granulocytes % 0.8 %; Immature Granulocytes Absolute 0.06 #; Lymphocytes # 0.9 10*3/uL (1.4-4.0); Lymphocytes % 11.6 % (21.3-54.2); Mean Corpuscular Volume 80.9 FL (87-102); Monocytes % 11.7 % (1.7-12.7); Neutrophils % 69.2 % (38.7-73.9); Platelet Count 241 T/CUMM (130-400); Red Cell Distribution Width 17.3 % (9.3-17.3); White Blood Count 7.9 T/CUMM (4-12)
[2020-01-29 06:01] LABS: Calcium 8.5 MG/DL (8.5-10.1); Osmolality,Calculated 276.7 MOS/KG (273-304)
[2020-01-29] MEDS: LEVOTHYROXINE 50 MCG TABLET PO SCH (06:40)
[2020-01-29] MEDS: INSULIN LISPRO 100 UNIT/ML SUBCUT SCH ×4 (07:57→21:37)
[2020-01-29] MEDS: SODIUM BICARBONATE 650 MG TABLET PO SCH ×3 (12:24→21:38)
[2020-01-29] MEDS: ISOSORBIDE MONONITRATE 30 MG TABLET PO SCH (12:24)
[2020-01-29] MEDS: FAMOTIDINE 20 MG TABLET PO SCH (12:25)
[2020-01-29] MEDS: THIAMINE 100 MG TABLET PO SCH (12:25)
[2020-01-29] MEDS: ERGOCALCIFEROL 50,000 UNIT CAPSULE PO SCH (12:25)
[2020-01-29] MEDS: HEPARIN 5,000 UNIT/1 ML VIAL SUBCUT SCH ×2 (12:25→21:38)
[2020-01-29] MEDS: SEVELAMER CARBONATE 800 MG TABLET PO SCH ×3 (12:26→16:29)
[2020-01-29] MEDS: carvediloL 12.5 MG TABLET PO SCH ×2 (12:26→16:29)
[2020-01-29] MEDS: metOLazone 5 MG TABLET PO SCH (12:27)
[2020-01-29] MEDS: ATORVASTATIN 20 MG TABLET PO SCH (21:38)
[2020-01-30] MEDS: FUROSEMIDE 40 MG/4 ML VIAL IV SCH ×2 (00:46→08:49)
[2020-01-30] MEDS: LEVOTHYROXINE 50 MCG TABLET PO SCH (05:30)
[2020-01-30] MEDS: INSULIN LISPRO 100 UNIT/ML SUBCUT SCH ×2 (08:16→12:29)
[2020-01-30 08:38] LABS: ABG Base Excess 3.2 MMOL/L (-2.5-2.5); ABG HCO3 27.2 MMOL/L (20-26); ABG Oxygen Saturation 96.5 % (95-100); ABG PCO2 40.4 MM HG (35-48); ABG PH 7.441 (7.35-7.45); ABG PO2 81.5 MM HG (80-95); Allen Test Positive; Pt O2 Delivery Device Room Air
[2020-01-30] MEDS: HEPARIN 5,000 UNIT/1 ML VIAL SUBCUT SCH (08:48)
[2020-01-30] MEDS: carvediloL 12.5 MG TABLET PO SCH (08:49)
[2020-01-30] MEDS: metOLazone 5 MG TABLET PO SCH (08:49)
[2020-01-30] MEDS: THIAMINE 100 MG TABLET PO SCH (08:49)
[2020-01-30] MEDS: ISOSORBIDE MONONITRATE 30 MG TABLET PO SCH (08:49)
[2020-01-30] MEDS: SEVELAMER CARBONATE 800 MG TABLET PO SCH ×2 (08:49→12:29)
[2020-01-30] MEDS: SODIUM BICARBONATE 650 MG TABLET PO SCH (08:49)
[2020-01-30] MEDS: FAMOTIDINE 20 MG TABLET PO SCH (08:50)
[2020-01-30 11:12] VITALS: BP 128/58
== END 2020-01-30 13:58 | disposition home or self-care (01) | DRG 291 ==
LOC: N.ED 18:22 → N.CC 18:22 → N.ED 18:22 → N.EDINP 18:22 → SUATTDRO 21:48 → N.CC 21:49 → SUATTDRO 21:49 → N.EDINP 21:49 → N.CC 23:34 → N.5E 01-12 11:03
PROVIDERS: ADMIT Family Medicine; ATTEND Internal Medicine